=== PATIENT | female | born 1970 | race American Indian/Alaskan Native ===

== ENCOUNTER 2020-01-30 18:41 | Emergency (ER) | payer OTHER ==
[2020-01-30 19:19] VITALS: BP 141/104
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
[2020-01-30] MEDS ORDERED: IBUPROFEN 600 MG TAB PO ONE (20:24)
[2020-01-30] MEDS ORDERED: ONDANSETRON 4 MG ODT TAB PO ONE (20:24)
[2020-01-30] MEDS ORDERED: HYDROcodone/ACETAMINOPHEN 5-325 MG TAB PO ONE (20:24)
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
== END 2020-01-30 21:28 | disposition home or self-care (01) ==
LOC: ED 18:41
DX: S70.02XA Contusion of left hip, initial encounter (principal); S70.12XA Contusion of left thigh, initial encounter; S83.92XA Sprain of unspecified site of left knee, initial encounter; M62.830 Muscle spasm of back; F17.200 Nicotine dependence, unspecified, uncomplicated; Z90.710 Acquired absence of both cervix and uterus; W01.0XXA Fall on same level from slipping, tripping and stumbling without subsequent striking against object, initial encounter; Y93.89 Activity, other specified; Y92.89 Other specified places as the place of occurrence of the external cause; Y99.8 Other external cause status
CPT/HCPCS: 72100; 99284; Q0162